=== PATIENT | female | born 1945 | race African-American/Black ===

== ENCOUNTER 2017-07-10 20:13 | Inpatient (IN) | payer OTHER ==
[~2017-07-10] VITALS: Ht 160 cm; Wt 89.8 kg
--- NOTE | ~2017-07-10 | EKG ---
[place] [address] [facility] [place] [address] ELECTROCARDIOGRAM REPORT Name: JACOB THORNTON [id number] Admission: 07/10/17 Attend Phys: Discharge: Date of : 47 Report #: [id number] THIS REPORT FOR: //name// [facility] ED Test Date: 2017-07-10 Test Time: 20:19:59 Pat Name: JACOB THORNTON Department: Room: Gender: F Application Integration Engineer: [id number] : 1945 Requested By: Juan Luis Gandhi Order Number: [id number] MD: Yousif Mesa Measurements Intervals Pray Rate: 86 P: 60 CA: 144 QRS: 9 QRSD: 102 T: 53 QT: 368 QTc: 440 Interpretive Statements Sinus rhythm Atrial premature complexes Probable left atrial enlargement Minimal ST elevation, anterior leads No previous ECG available for comparison Electronically Signed On 07-10-2017 22:12:29 CDT by Yousif Mesa [email or web address] <ELECTRONICALLY SIGNED> By: Yousif Mesa MD 07/10/17 2212 18 18 Yousif Mesa MD /CHASE
--- NOTE | ~2017-07-10 | 2DMMODE ---
[facility] [address] [place] [address] 2 D/M-MODE ECHOCARDIOGRAM Name: JACOB THORNTON Room #: 210-P [facility] IN ..#: [id number] Admission: 07/10/17 Attend Phys: Titus Garcia, Discharge: Date of : 47 Date of Service: 07/12/17 1141 Report #: [id number] THIS REPORT FOR: //name// APPROVED REPORT Study performed: 07/12/2017 09:58:39 EXAM: Comprehensive 2D, Doppler, and color-flow Echocardiogram Patient Location: Echo lab Room #: 210 Status: routine BSA: 1.90 HR: 81 bpm BP: 143/72 mmHg Other Information Study Quality: Adequate Indications Diabetes Chest Pain Hypertension/HDD HLD, Hx: PE 2D Dimensions RVDd: 32.76 mm LVEF(%): 51.48 (>50%) IVSd: 15.27 (7-11mm) LVOT Diam: 20.67 (18-24mm) LVDd: 47.99 mm PWd: 10.08 (7-11mm) Ascending Ao: 34.37 (22-36mm) LVDs: 35.36 (25-40mm) Aortic Root: 34.64 mm Peters's LVEF: 51.48 % Volumes Left Atrial Volume (Systole) Single Plane 4CH: 34.28 mL Single Plane 2CH: 15.62 mL LA ESV Index: 15.00 mL/m2 Aortic Valve AoV Peak Chucho.: 1.37 m/s AO Peak Gr.: 11.89 mmHg LVOT Max P.54 mmHg LVOT Max V: 1.05 m/s JOYCE Vmax: 2.58 cm2 Mitral Valve [facility] [address] [address] 2 D/M-MODE ECHOCARDIOGRAM Name: JACOB THORNTON Room #: 210-[facility] IN ..#: [id number] Admission: 07/10/17 Attend Phys: Titus Garcia, Discharge: Date of : 47 Date of Service: 07/12/17 1141 Report #: [id number] E/A Ratio: 0.8 MV Decel. Time: 197.38 ms MV E Max Chucho.: 0.80 m/s MV A Chucho.: 0.99 m/s MV PHT: 57.24 ms IVRT: 73.82 ms Pulmonary Valve PV Peak Chucho.: 1.15 m/s PV Peak Gr.: 5.37 mmHg Pulmonary Vein P Vein S: 0.56 m/s P Vein A: 0.17 m/s P Vein D: 0.32 m/s P Vein A Dur.: 78.4 msec P Vein S/D Ratio: 1.75 Tricuspid Valve TR Peak Chucho.: 2.60 m/s RAP Estimate: 5.00 mmHg TR Peak Gr.: 27.03 mmHg PA Pressure: 32.00 mmHg Left Ventricle The left ventricle is normal size. There is normal LV segmental wall motion. Mild basal septal hypertrophy is present. The left ventricular ejection fraction is within the normal range. LVEF is 55-60%. Grade I - abnormal relaxation pattern. Right Ventricle The right ventricle is normal size. The right ventricular systolic function is normal. Atria The left atrium size is normal. The right atrium size is normal. Aortic Valve The aortic valve is normal in structure. No aortic regurgitation is present. There is no aortic valvular stenosis. Mitral Valve The mitral valve is normal in structure. Mild mitral annular calcification. Trace to mild mitral regurgitation. No evidence of mitral valve stenosis. Tricuspid Valve The tricuspid valve is normal in structure. Trace to mild tricuspid regurgitation with an estimated PAP of 32 mmHg. [facility] [address] [place] [address] 2 D/M-MODE ECHOCARDIOGRAM Name: JACOB THORNTON Room #: 210-P [facility] IN ..#: [id number] Admission: 07/10/17 Attend Phys: Titus Garcia, Discharge: Date of : 47 Date of Service: 07/12/17 1141 Report #: [id number] Pulmonic Valve The pulmonary valve is normal in structure. There is no pulmonic valvular regurgitation. Great Vessels The aortic root is normal in size. IVC is normal in size and collapses >50% with inspiration. Pericardium There is no pericardial effusion. <Conclusion> The left ventricle is normal size. LVEF is 55-60%. The aortic valve is normal in structure. The mitral valve is normal in structure. Mild mitral annular calcification. Trace to mild mitral regurgitation. No evidence of mitral valve stenosis. The tricuspid valve is normal in structure. <ELECTRONICALLY SIGNED> By: Donaldo Cordero MD 07/12/17 1141 1141 1141 Donaldo Cordero MD /INF
[2017-07-10 20:14] VITALS: BP 110/68
[2017-07-10 21:58] LABS: ABSOLUTE NEUTROPHILS 2.9 thou/uL (1.4-8.2); BASOPHILS 0.6 % (0.0-2.0); EOSINOPHILS 2.3 % (0.0-3.0); HEMATOCRIT 29.3 % (37.0-47.0); HEMOGLOBIN 9.7 gm/dL (12.0-15.0); MCH 25.1 pg (26.0-34.0); MCHC 33.1 g/dL (28.0-37.0); MCV 75.7 fL (80.0-100.0); MONOCYTES 7.8 % (1.0-8.0); PLATELET COUNT 160 thou/uL (150-400); POLYS 52.3 % (36.0-66.0); RBC 3.87 mil/uL (4.20-5.00); RDW 15.6 % (10.5-14.5); WBC 5.5 thou/uL (4.0-11.0)
[2017-07-10 21:59] LABS: MANUAL DIFF NO
[2017-07-10] MEDS ORDERED: AMITRIPTYLINE H25 M2 PO (21:59)
[2017-07-10] MEDS ORDERED: NORVASC 5 MG TAB5 MG PO (22:00)
[2017-07-10 22:01] LABS: ANION GAP 6 mmol/L (7-16); BUN 29 mg/dL (7-18); CALCIUM 8.6 mg/dL (8.5-10.1); CHLORIDE 105 mmol/L (98-107); CO2 28 mmol/L (21-32); CREATININE 1.4 mg/dL (0.6-1.0); GLUCOSE 139 mg/dL (74-106); POTASSIUM 3.9 mmol/L (3.5-5.1); SODIUM 139 mmol/L (136-145)
[2017-07-10] MEDS ORDERED: LASIX 20 MG TAB20 MG PO (22:01)
[2017-07-10] MEDS ORDERED: TUMS PO (22:01)
[2017-07-10] MEDS ORDERED: NEURONTIN600 MG PO (22:02)
[2017-07-10] MEDS ORDERED: VITAMIN E400 UNIT PO (22:03)
[2017-07-10] MEDS ORDERED: DIOVAN320 MG PO (22:03)
[2017-07-10] MEDS ORDERED: LEVEMIR SUBQ (22:03)
[2017-07-10] MEDS ORDERED: MIRALAX17 GM PO (22:03)
[2017-07-10] MEDS ORDERED: XARELTO20 MG PO (22:04)
[2017-07-10] MEDS ORDERED: NOVOLOG100 UNIT/1 SUBQ (22:04)
[2017-07-10 22:12] LABS: SGOT 22 U/L (15-37)
[2017-07-10 22:13] LABS: ALKALINE PHOSPHATASE 125 U/L (46-116); DIRECT BILIRUBIN 0.1 mg/dL (<0.1-0.3); SGPT 21 U/L (30-65); TOTAL BILIRUBIN 0.2 mg/dL (<0.1-1.0); TOTAL PROTEIN 7.3 g/dL (6.4-8.2); TROPONIN-I < 0.04 ng/mL (<0.04-0.07)
[2017-07-10 22:40] VITALS: BP 160/99
[2017-07-10 22:42] VITALS: BP 151/71
[2017-07-10 22:49] VITALS: BP 149/75
[2017-07-10 23:00] VITALS: BP 160/99
[2017-07-11 03:05] VITALS: BP 138/79
[2017-07-11 04:48] LABS: CHOLESTEROL 113 mg/dL (<200); HDL CHOLESTEROL 74 mg/dL (>40); LDL CHOLESTEROL 32 mg/dL (<100); SERUM ASSESSMENT Clear; TC:HDL 1.5 Ratio (Not establshd); TRIGLYCERIDE 38 mg/dL (<150); VLDL 8 mg/dL (<40)
[2017-07-11 07:27] VITALS: BP 150/77
[2017-07-11 09:19] LABS: % SATURATION 18 % (20-39); IRON 40 ug/dL (50-170); TIBC 217 ug/dL (250-450); UIBC 177 ug/dL
[2017-07-11 12:47] VITALS: BP 151/86
[2017-07-11 15:28] VITALS: BP 126/65
[2017-07-11 19:07] VITALS: BP 177/75
[2017-07-11 20:07] LABS: GLYCOHEMOGLOBIN (HGB A1C) 7.5 % (4.8-5.6)
[2017-07-11 23:41] VITALS: BP 161/87
[2017-07-12 04:02] VITALS: BP 152/67
[2017-07-12 07:00] VITALS: BP 143/72
[2017-07-12 10:59] VITALS: BP 143/72
[2017-07-12 11:40] VITALS: BP 124/61
[2017-07-14] MEDS ORDERED: XARELTO20 MG PO (07:44)
== END 2017-07-12 14:37 | disposition home or self-care (01) | DRG 311 ==
LOC: ER 20:13 → EROBS 22:35 → 2N 22:35 → ENTRNSPT 07-12 14:23 → EDTRNSPTSTS 07-12 14:26 → 2N 07-12 14:37
PROVIDERS: Internal Medicine Geriatric Medicine; Nurse Practitioner Acute Care; Nurse Practitioner Adult Health; Physician Assistant
DX: I20.9 Angina pectoris, unspecified (principal); N17.9 Acute kidney failure, unspecified; I99.8 Other disorder of circulatory system; N18.9 Chronic kidney disease, unspecified; E78.5 Hyperlipidemia, unspecified; I12.9 Hypertensive chronic kidney disease with stage 1 through stage 4 chronic kidney disease, or unspecified chronic kidney disease; E11.42 Type 2 diabetes mellitus with diabetic polyneuropathy; F03.90 Unspecified dementia, unspecified severity, without behavioral disturbance, psychotic disturbance, mood disturbance, and anxiety; D64.9 Anemia, unspecified; Z86.73 Personal history of transient ischemic attack (TIA), and cerebral infarction without residual deficits; Z90.49 Acquired absence of other specified parts of digestive tract; Z87.891 Personal history of nicotine dependence; Z83.3 Family history of diabetes mellitus; Z82.3 Family history of stroke; Z86.711 Personal history of pulmonary embolism; Z79.899 Other long term (current) drug therapy
CPT/HCPCS: 10081

== ENCOUNTER → 2017-07-14 | Outpatient (CLI) | payer OTHER ==
[~2017-07-14] VITALS: Ht 162.6 cm; Wt 72.6 kg
[~2017-07-14] MED LIST: AMITRIPTYLINE H25 M2 PO; DIOVAN320 MG PO; LASIX 20 MG TAB20 MG PO; LEVEMIR SUBQ; MIRALAX17 GM PO; NEURONTIN600 MG PO; NORVASC 5 MG TAB5 MG PO; NOVOLOG100 UNIT/1 SUBQ; TUMS PO; VITAMIN E400 UNIT PO; XARELTO20 MG PO
--- NOTE | ~2017-07-14 | CATHLAB ---
[facility] [address] [place] [address] INVASIVE PROCEDURE REPORT Name: JACOB THORNTON [facility] [id number] Admission: 07/14/17 Attend Phys: Carlos Dyer MD Discharge: Date of : 47 Date of Service: 07/14/17920 Report #: [id number] THIS REPORT FOR: //name// APPROVED REPORT Patient Details Patient Status: Out-Patient Room #: The patient is a 71 year-old female Event Personnel Carlos Dyer Services Coordinator, Ashley Bustillos, Perez Velez RN, Santy Tello Scrtara Procedures Performed Art Access - R femoral artery* 26520 Initial Mod Sed Same Phys/QHP Gr5y 135005 Left Heart Cath w/or w/o Coronaries [id number] [facility] Hemostasis with Manual pressure Indication Unstable angina , Positive stress test Risk Factors Hypercholesterolemia, Hypertension, Diabetes Procedure Narrative The patient was brought electively to the Cardiac Catheterization Laboratory and was prepped and draped in a sterile manner. The Right Groin^ was infiltrated with 1% Lidocaine subcutaneous anesthesia. A PINNACLE 4FR Sheath #[id number] sheath was inserted into the RFA^. Coronary angiography was performed using coronary diagnostic catheters. The right coronary system was accessed and visualized with a JR 4 catheter. The left coronary system was accessed and visualized with a JL 4 catheter. The left ventricle was accessed and visualized with a Pigtail catheter. Left ventricular/Aortic Valve gradient assessed via catheter pullback. Left ventriculogram was performed in 30 degree projection. Hemostasis was obtained with manual pressure following sheath removal without any complications. The patient tolerated the procedure well and there were no complications associated with the procedure. There was no hematoma. Intraoperative Conscious Sedation Sedation start time: 08:34 Case end Time: 08:50 Fentanyl 25 mcg Versed 1 mg [facility] [place] [address] INVASIVE PROCEDURE REPORT Name: JACOB THORNTON Room #: REG [facility]#: [id number] Admission: 07/14/17 Attend Phys: Carlos Dyer MD Discharge: Date of : 47 Date of Service: 07/14/17 0921 Report #: [id number] Fluoro Time: 1.56 minutes Dose: DAP 3078.90 cGycm2 398 mGy Contrast Type and Amount: Visipaque 100 ml Coronary Angiography The patient's coronary anatomy is right dominant. Diagnostic Cath Left Main Large-caliber vessel, angiographically normal. LAD Moderate to large size caliber vessel, angiographically normal. Travels down the anterior wall and wraps around the apex. Circumflex Moderate size caliber vessel, angiographically normal. OM1 Moderate size caliber vessel, angiographically normal. Right Coronary Dominant vessel, angiographically normal. Left Ventriculography The left ventricle is normal in size with normal contractility. The left ventricular ejection fraction is estimated to be 50%. Hemodynamics The aortic pressure is 160/82 mmHg with a mean of 108 mmHg. The left ventricular pressure is 151/14 mmHg with a mean of mmHg. The left ventricular end diastolic pressure is 34 mmHg. Conclusion 1. Angiographically normal coronary arteries. 2. Low-normal LV systolic function. Recommendations Medical Therapy <ELECTRONICALLY SIGNED> By: Carlos Dyer MD 07/14/17920 0 0 Carlos Dyer MD /INF
--- NOTE | ~2017-07-14 | EKG ---
[place] [address] [address] [facility] [address] ELECTROCARDIOGRAM REPORT Name: HILLARYJACOB HAIDERETT Room #: REG [facility]#: [id number] Admission: 07/14/17 Attend Phys: Carlos Dyer MD Discharge: Date of : 47 Report #: [id number] THIS REPORT FOR: //name// [facility] Test Date: 2017-07-14 Test Time: 07:29:43 Pat Name: JACOB THORNTON Department: Room: Gender: F Business Analyst Project Manager: : 1945 Requested By: Carlos Dyer Order Number: [id number] MD: Fredis Kingston Measurements Intervals [place] Rate: 67 P: 45 DC: 137 QRS: 7 QRSD: 98 T: 36 QT: 396 QTc: 418 Interpretive Statements Sinus rhythm Multiform ventricular premature complexes Compared to ECG 07/10/2017 20:19:59 Ventricular premature complex(es) now present Atrial premature complex(es) no longer present ST (T wave) deviation no longer present Electronically Signed On 07-14-2017 8:02:29 CDT by Fredis Kingston [email or web address] <ELECTRONICALLY SIGNED> By: Fredis Kingston MD, [facility] 07/14/17801 8 8 Fredis Kingston MD, [facility] /EPI
[2017-07-14 07:23] VITALS: BP 140/55
[2017-07-14 07:45] LABS: HEMATOCRIT 30.5 % (37.0-47.0); HEMOGLOBIN 9.7 gm/dL (12.0-15.0); MCH 24.1 pg (26.0-34.0); MCHC 31.7 g/dL (28.0-37.0); MCV 75.9 fL (80.0-100.0); RBC 4.01 mil/uL (4.20-5.00); RDW 15.5 % (10.5-14.5); WBC 4.3 thou/uL (4.0-11.0)
[2017-07-14 07:56] LABS: CREATININE 1.2 mg/dL (0.6-1.0); POTASSIUM 4.1 mmol/L (3.5-5.1)
[2017-07-14 07:58] LABS: PROTIME 9.9 Seconds (9.3-11.4)
== END | disposition home or self-care (01) ==
LOC: CATH 07:00
PROVIDERS: Internal Medicine Cardiovascular Disease
DX: I20.0 Unstable angina (principal); I10 Essential (primary) hypertension; E78.00 Pure hypercholesterolemia, unspecified; E11.9 Type 2 diabetes mellitus without complications